=== PATIENT | female | born 2000 | race Caucasian/White ===

== ENCOUNTER 2022-09-10 20:32 | Observation (INO) | payer BC ==
[~2022-09-10 20:32] MED LIST: Iopamidol-370 76% 500 ML MDV (1 ML CHARGE) ONE
[2022-09-10 21:33] LABS: #Monocytes 0.5 thou/uL (0.11-0.59); #Neutrophils 6.7 thou/uL (1.40-6.50); %Basophils 0.2 % (0.0-1.0); %Eosinophils 0.5 % (0.0-10.0); %Lymphocytes 13.3 % (21.0-51.0); %Monocytes 6.2 % (0.0-10.0); %Neutrophils 78.9 % (42.0-75.0); Mean Corpuscular Volume 91.5 fl (78.0-98.0); Mean Platelet Volume 10.1 fL (7.4-10.4); Platelet Count 262 10x3/uL (130-400); RBC Distribution Width 11.8 % (11.5-14.5); Red Blood Cell (RBC) Count 5.31 mill/uL (4.20-5.40); White Blood Cell (WBC) Count 8.5 10x3/uL (4.8-10.8)
[2022-09-10 22:02] LABS: ALT (SGPT) 32 U/L (8-55); AST (SGOT) 17 U/L (5-34); Albumin 4.3 g/dL (3.5-5.0); Alkaline Phosphatase 60 U/L (40-110); Anion Gap 14 mmol/L (10-20); BUN (Urea Nitrogen) 7 mg/dL (7.0-18.7); Bilirubin, Total 0.6 mg/dL (0.2-1.2); Calc. Creatinine Clearance 0 mL/min (70-130); Calcium 9.5 mg/dL (7.8-10.44); Carbon Dioxide 21 mmol/L (22-29); Chloride 108 mmol/L (98-107); Estimated GFR 87; Globulin 3.6 g/dL (2.4-3.5); Glucose 81 mg/dL (70-105); Lipase 6 U/L (8-78); Potassium 3.5 mmol/L (3.5-5.1); Protein, Total 7.9 g/dL (6.0-8.3); Sodium 139 mmol/L (136-145)
[2022-09-10 22:03] LABS: BHCG - Serum Negative (NEGATIVE); Pregs Control Background? CLEAR/WHITE (CLR/WHITE); Pregs Control Bar Appear? YES (CONTROL BAR)
[2022-09-10] MEDS ORDERED: Ondansetron PF 4 MG/2 ML Vial ONE ×2 (22:03→23:47)
[2022-09-10] MEDS ORDERED: Dicyclomine 20 MG/2 ML VIAL ONE (22:03)
[2022-09-10 22:20] LABS: Bacteria/HPF 4+ HPF (None Seen); Bilirubin 1+ (Negative); Blood, Urine Negative (Negative); CAUTI Indications for Culture Pelvic or flank pain; Clarity Turbid (Clear); Glucose, Urine (Dipstick) Normal (Negative); Ketone, Urine 80 mg/dL (Negative); Leukocyte 500 Leu/uL (Negative); Nitrite Negative (Negative); Protein, Urine (Dipstick) 50 mg/dL (Neg-Trace); RBC/HPF 0-3 HPF (0-3); Renal Epithelial 0-3 HPF (None Seen); Specific Gravity, Urine 1.039 (1.002-1.036); WBC/HPF Greater than 50 HPF (0-3)
[2022-09-10 22:23] LABS: Urine Culture Reflex Yes Yes
[2022-09-10] MEDS ORDERED: Morphine 4 MG/ML VIAL ONE (23:46)
[2022-09-11] MEDS ORDERED: Metoclopramide HCl 10 MG/2 ML VIAL ONE (02:03)
[2022-09-11] MEDS ORDERED: Ondansetron ODT 4 MG TAB SL PRN (03:30)
[2022-09-11] MEDS ORDERED: Ondansetron PF 4 MG/2 ML Vial IVP PRN ×2 (03:30→09:01)
[2022-09-11] MEDS ORDERED: Acetaminophen 325 MG TAB PO PRN ×2 (03:30→09:01)
[2022-09-11 03:43] LABS: Amphetamine Not Detected (NotDetected); Barbiturates Screen Not Detected (NotDetected); Benzodiazepine Screen Not Detected (NotDetected); Cocaine Metabolite Screen Not Detected (NotDetected); Methadone Not Detected (NotDetected); Methamphetamine Not Detected (NotDetected); Opiate Screen Not Detected (NotDetected); Oxycodone Screen Not Detected (NotDetected); Phencyclidine (PCP) Not Detected (NotDetected); THC/Cannabinoid Screen Not Detected (NotDetected); Tricyclic Screen Not Detected (NotDetected)
[2022-09-11] MEDS ORDERED: Sodium Chloride 0.9% 1,000 ML IV SCH (09:00)
[2022-09-11] MEDS ORDERED: Morphine 4 MG/ML VIAL SLOW IVP PRN (09:04)
[2022-09-11] MEDS ORDERED: Pantoprazole 40 MG VIAL IVP SCH (09:30)
[2022-09-11] MEDS: cefTRIAXone\\ROCEPHIN 2 GM in Sodium Chloride 0.9% 100 ML IVPB SCH (09:45)
[2022-09-11] MEDS: NS 0.9% w/ 20 MEQ KCL 1,000 ML/1,000 ML BAG IV SCH ×2 (09:52→15:03)
[2022-09-11] MEDS: Metoclopramide HCl 10 MG/2 ML VIAL IVP PRN ×2 (10:02→20:37)
[2022-09-11 11:10] VITALS: BMI 40.6
[2022-09-12] MEDS: NS 0.9% w/ 20 MEQ KCL 1,000 ML/1,000 ML BAG IV SCH ×3 (03:08→15:29)
[2022-09-12 05:31] LABS: #Eosinphils 0.1 thou/uL (0.0-0.7); #Monocytes 0.6 thou/uL (0.11-0.59); #Neutrophils 4.8 thou/uL (1.40-6.50); %Basophils 0.6 % (0.0-1.0); %Eosinophils 1.6 % (0.0-10.0); %Lymphocytes 18.4 % (21.0-51.0); %Monocytes 8.8 % (0.0-10.0); %Neutrophils 69.6 % (42.0-75.0); Hemoglobin 14.9 g/dL (12.0-16.0); Mean Corpuscular HGB CONC 33.4 g/dL (32.0-36.0); Mean Corpuscular Hemoglobin 31.2 pg (27.0-31.0); Mean Corpuscular Volume 93.5 fl (78.0-98.0); Platelet Count 214 10x3/uL (130-400); RBC Distribution Width 11.7 % (11.5-14.5); Red Blood Cell (RBC) Count 4.77 mill/uL (4.20-5.40); White Blood Cell (WBC) Count 6.9 10x3/uL (4.8-10.8)
[2022-09-12 05:57] LABS: Anion Gap 12 mmol/L (10-20); BUN (Urea Nitrogen) 4 mg/dL (7.0-18.7); Calc. Creatinine Clearance 224 mL/min (70-130); Calcium 8.3 mg/dL (7.8-10.44); Carbon Dioxide 21 mmol/L (22-29); Chloride 110 mmol/L (98-107); Estimated GFR 111; Glucose 77 mg/dL (70-105); Potassium 3.6 mmol/L (3.5-5.1); Sodium 139 mmol/L (136-145)
[2022-09-12] MEDS ORDERED: Pantoprazole 40 MG VIAL IVP SCH (09:00)
[2022-09-12] MEDS: cefTRIAXone\\ROCEPHIN 2 GM in Sodium Chloride 0.9% 100 ML IVPB SCH (09:16)
[2022-09-12 13:22] VITALS: BP 123/74; TEMP 97.8
== END 2022-09-12 16:21 | disposition home or self-care (01) ==
LOC: ERS 20:32 → ERHOLD 09-11 03:18 → MSONC 09-11 03:37
PROVIDERS: ADMIT Internal Medicine; ATTEND Internal Medicine
DX: N39.0 Urinary tract infection, site not specified (principal); K80.20 Calculus of gallbladder without cholecystitis without obstruction; R11.2 Nausea with vomiting, unspecified; Z87.74 Personal history of (corrected) congenital malformations of heart and circulatory system; Z79.890 Hormone replacement therapy
CPT/HCPCS: 36415; 74177; 76705; 78227; 80048; 80053; 80306; 81001; 83690; 84484; 84703; 85025; 87040; 87077; 87086; 87186; 93005; 96361; 96365; 96366; 96367; 96372; 96375; 96376; A9537; C9113; G0378; J0696; J0744; J2270; J2405; J2765; J3480; J3490; Q9967